=== PATIENT | male | born 1985 | race Two or more races ===

== ENCOUNTER 2016-08-11 20:43 | Emergency (ER) | payer SELFPAY ==
[~2016-08-11] VITALS: Ht 177.8 cm; Wt 135.0 kg
[2016-08-11 20:57] VITALS: Ht 177.8 cm; Wt 135.0 kg
[2016-08-11] MEDS ORDERED: KETOROLAC 60 MG INJ IM STA (21:56)
[2016-08-11] MEDS ORDERED: CARI350T PO (21:58)
[2016-08-11] MEDS ORDERED: HYDR-902 PO (21:58)
[2016-08-11] MEDS ORDERED: IBUP800T25 PO (21:58)
[2016-08-11] MEDS ORDERED: HYDROCODONE/APAP (10/325) TAB PO ONE (22:00)
--- NOTE | 2016-08-11 22:03 | ERD ---
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 Pain is 7 out of 10 and sometimes wakes up at night with pain. This is been going on for over 3 weeks. 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 He has taken Motrin which does not help. Denies any other complaints. ROS All systems reviewed and are negative except as per history of present illness. Medications Home Meds Active Scripts Carisoprodol* (Soma*) 350 Mg Tablet, 350 MG PO QHS Y for MUSCLE SPASMS, #20 TAB Prov:JAMES BROWN PA-C 08/11/16 Hydrocodone/Acetaminophen ([place] 10-325 Tablet) 1 Each Tablet, 1 TAB PO Q6H Y for PAIN, #20 TAB Prov:JAMES BROWN PA-C 08/11/16 Ibuprofen* (Motrin*) 800 Mg Tab, 800 MG PO Q6, #30 TAB Prov:JAMES BROWN PA-C 08/11/16 PMhx/Soc Medical and Surgical Hx: pt denies Medical Hx, pt denies Surgical Hx Hx Alcohol Use: No Hx Substance Use: No Hx Tobacco Use: No Smoking Status: Never smoker FmHx Family History: No diabetes Physical Exam Vitals Vital Signs Date Time Temp Pulse Resp B/P Pulse Ox O2 Delivery O2 Flow Rate FiO2 08/11/16 20:57 97.6 81 18 140/108 98 Physical Exam General: well developed, well nourished, alert, nontoxic, no distress Head: normocephalic, atraumatic Neck: Supple, nontender, no lymphadenopathy, no midline tenderness Respiratory: Clear to auscaultation bilaterally, speaks in full sentences, no use of accesory muscles or labored breathing, no rales, ronchi, or wheezing Cardiovascular: RRR, No murmurs Extremities: moving all extremities normally, normal gait, no edema, bilateral positive Tinel and Phalen's Results 24 hrs Current Medications Medications (Trade) Dose Ordered Sig/Antony Route PRN Reason Start Time Stop Time Status Last Admin Dose Admin Ketorolac Tromethamine (Toradol) 60 mg ONCE STAT IM 08/11/16 21:56 08/11/16 21:57 DC Acetaminophen/ Hydrocodone Bitart ([place] (10/325)) 1 tab ONCE ONCE PO 08/11/16 22:00 08/11/16 22:01 Procedures/MDM 31-year-old male presents with bilateral arm pain is most likely carpal 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 He is neurovascular intact. He was given Toradol and [place] here in the emergency room and discharged with ibuprofen , Soma, and [place]. Recommended this patient follow up with her primary care doctor within 48 hours or return to the emergency room for any worsening of symptoms. However this time I do believe there is suitable for outpatient management. I answered all their questions and they agreed with the plan and were discharged home. Departure Diagnosis: Primary Impression: Carpal tunnel syndrome Condition: Stable Patient Instructions: Carpal Tunnel Additional Instructions: Call your primary care doctor TOMORROW for an appointment during the next 1-2 days.See the doctor sooner or return here if your condition worsens before your appointment time. JAMES BROWN PA-C Aug 11, 2016 22:03
== END 2016-08-11 22:54 | disposition home or self-care (01) ==
LOC: FTE 20:43
DX: G56.03 Carpal tunnel syndrome, bilateral upper limbs (principal)
CPT/HCPCS: 96372; J1885